=== PATIENT | male | born 1965 | race Caucasian/White ===

== ENCOUNTER 2020-01-29 07:02 | Outpatient (CLI) | payer OTHER ==
[2020-01-29 20:25] LABS: SARS-CoV-2 MS2 Positive; SARS-CoV-2 N Gene Negative; SARS-CoV-2 S Gene Negative; SARS-CoV-2 by NAA Not Detected (NotDetected); SARS-CoV-2 orf1ab Negative
== END 2020-01-29 07:03 | disposition home or self-care (01) ==
LOC: LABBT 07:02
PROVIDERS: ATTEND Neurological Surgery
DX: Z01.818 Encounter for other preprocedural examination (principal); Z20.828 Contact with and (suspected) exposure to other viral communicable diseases; M48.061 Spinal stenosis, lumbar region without neurogenic claudication
CPT/HCPCS: 87635; 93005; 93010; U0003

== ENCOUNTER 2020-02-03 07:25 | Day surgery (SDC) | payer OTHER ==
[2020-01-31 09:22] VITALS: BMI 45.9
[2020-02-03] MEDS ORDERED: Clindamycin/D5W 900 mg/50 ml Premix Bag ONE ×2 (08:27→13:51)
[2020-02-03] MEDS ORDERED: Levofloxacin 500 mg/D5W 100 ml Premix Bag ONE (08:27)
[2020-02-03] MEDS ORDERED: Bupivacaine PF 0.5% 30 ML VIAL ONE (08:37)
[2020-02-03] MEDS ORDERED: EPINEPHrine 1 MG/ML AMP ONE (08:37)
[2020-02-03] MEDS ORDERED: Fentanyl 100 MCG/2 ML VIAL ONE ×3 (08:42→11:17)
[2020-02-03] MEDS ORDERED: Midazolam HCl 2 mg/2 ml Vial ONE (08:42)
[2020-02-03] MEDS ORDERED: Ondansetron PF 4 MG/2 ML Vial ONE (10:13)
[2020-02-03] MEDS ORDERED: Dexamethasone 20 MG/5 ML VIAL ONE (10:13)
[2020-02-03] MEDS ORDERED: Lidocaine 1% PF 5 ML VIAL ONE (10:13)
[2020-02-03] MEDS ORDERED: Ketorolac Tromethamine 30 MG/ML VIAL ONE (10:13)
[2020-02-03] MEDS ORDERED: Rocuronium Bromide 10 MG/ML (10ML VIAL) ONE (10:13)
[2020-02-03] MEDS ORDERED: PHENYLEPHRINE-NS 100 MCG/ML 10 ML SYRINGE ONE (10:13)
[2020-02-03] MEDS ORDERED: PROPOFOL 200 MG/20 ML VIAL ONE (10:13)
[2020-02-03] MEDS ORDERED: Glycopyrrolate 0.2 MG/ML 5 ML SYRINGE ONE (10:13)
--- NOTE | 2020-02-03 10:26 | OP ---
DATE OF PROCEDURE: 02/03/2020 CUSTOM VAN CONVERTER: Dimitry Meza PA-C INDICATION FOR PROCEDURE: Pain. 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 PROCEDURE PERFORMED: L4-S1 decompression. ANESTHESIA: General. DESCRIPTION OF PROCEDURE: The patient was brought into the operating room and placed under general anesthesia. He was flipped from the supine to prone position on the operating room table. A linear incision was planned spanning L4 through S1. After prepping and draping and after an appropriate preoperative pause, the incision was created. The soft tissues were swept away from midline. A self-retaining retractor was placed. After confirming the appropriate level with C-arm fluoroscopy, an Adson rongeur was used to remove the spinous process of L5 and the inferior aspect of L4. High-speed cutting drill bit as well as 2, 3, and 4 mm Kerrisons were then used to perform a laminectomy spanning L4 through S1. After completing the laminectomy, a copious amount of epidural lipomatosis was present was evacuated until the thecal sac was decompressed essentially as well as the lateral recesses. After completing the decompression, the wound was irrigated. Hemostasis was maintained throughout. The wound was then closed in anatomic layers, and a pressure dressing was applied. There were no known procedural complications. Job ID: [id number]
[2020-02-03] MEDS ORDERED: Tamsulosin HCl 0.4 MG CAP ONE (11:07)
[2020-02-03] MEDS ORDERED: Morphine 4 MG/ML VIAL ONE (11:41)
[2020-02-03] MEDS ORDERED: Promethazine HCl 25 MG/ML VIAL ONE (12:25)
== END 2020-02-03 14:50 | disposition home or self-care (01) ==
LOC: SDC 07:25
PROVIDERS: ATTEND Neurological Surgery
PROC: 01NB0ZZ Release Lumbar Nerve, Open Approach (ICD-10-PCS; principal; 2020-02-03)
DX: D17.79 Benign lipomatous neoplasm of other sites (principal); M48.061 Spinal stenosis, lumbar region without neurogenic claudication; G47.30 Sleep apnea, unspecified; E78.5 Hyperlipidemia, unspecified; Z79.899 Other long term (current) drug therapy; Z88.0 Allergy status to penicillin
CPT/HCPCS: 76000; J0171; J1100; J1885; J1956; J2250; J2270; J2405; J2550; J2704; J3010; J3490; S0020

== ENCOUNTER 2020-07-08 13:36 | Outpatient (CLI) | payer OTHER | END 2020-07-08 13:37 | disposition home or self-care (01) | LOC: TBSIIMAG 13:36 | PROVIDERS: ATTEND Neurological Surgery | DX: M48.062 Spinal stenosis, lumbar region with neurogenic claudication (principal); M47.816 Spondylosis without myelopathy or radiculopathy, lumbar region; Z98.890 Other specified postprocedural states | CPT/HCPCS: 72158 ==

== ENCOUNTER 2020-12-04 13:16 | Outpatient (CLI) | payer OTHER | END 2020-12-04 13:17 | disposition home or self-care (01) | LOC: BICCT 13:16 | PROVIDERS: ATTEND Neurological Surgery | DX: M54.5 Low back pain (principal); M79.606 Pain in leg, unspecified; M48.061 Spinal stenosis, lumbar region without neurogenic claudication; M43.16 Spondylolisthesis, lumbar region; Z98.890 Other specified postprocedural states | CPT/HCPCS: 72110; 72131 ==

== ENCOUNTER 2021-01-12 12:44 | Outpatient (CLI) | payer OTHER ==
[2021-01-13 00:49] LABS: SARS-CoV-2 PCR by NAA Not Detected (NotDetected)
== END 2021-01-12 12:45 | disposition home or self-care (01) ==
LOC: LABBT 12:44
PROVIDERS: ATTEND Neurological Surgery
DX: Z01.812 Encounter for preprocedural laboratory examination (principal); M48.061 Spinal stenosis, lumbar region without neurogenic claudication; Z20.822 Contact with and (suspected) exposure to COVID-19
CPT/HCPCS: U0003; U0005

== ENCOUNTER 2021-01-15 05:37 | Day surgery (SDC) | payer OTHER ==
[2021-01-14 12:13] VITALS: BMI 46.6
[2021-01-15] MEDS ORDERED: ceFAZolin 2 GM/DEX 5% 100 ML BAG ONE ×2 (05:59→11:59)
[2021-01-15] MEDS ORDERED: Fentanyl 100 MCG/2 ML VIAL ONE ×4 (06:11→12:43)
[2021-01-15] MEDS ORDERED: EPINEPHrine 1 MG/ML AMP ONE (06:23)
[2021-01-15] MEDS ORDERED: Bupivacaine PF 0.5% 30 ML VIAL ONE (06:23)
[2021-01-15] MEDS ORDERED: Thrombin 5000 UNITS/5 ML VIAL ONE (06:23)
[2021-01-15] MEDS ORDERED: Scopolamine 1.5 mg/72 hour Patch ONE (06:46)
[2021-01-15] MEDS ORDERED: Midazolam HCl 2 mg/2 ml Vial ONE (06:46)
[2021-01-15] MEDS ORDERED: Acetaminophen 500 MG TAB ONE (06:46)
[2021-01-15] MEDS ORDERED: HYDROmorphone 2 MG/ML VIAL ONE (06:59)
[2021-01-15] MEDS ORDERED: Ondansetron PF 4 MG/2 ML Vial ONE (07:05)
[2021-01-15] MEDS ORDERED: Lidocaine 1% PF 5 ML VIAL ONE (07:05)
[2021-01-15] MEDS ORDERED: PROPOFOL 200 MG/20 ML VIAL ONE (07:05)
[2021-01-15] MEDS ORDERED: ePHEDrine 50 MG/ML VIAL ONE (07:05)
[2021-01-15] MEDS ORDERED: Dexamethasone 20 MG/5 ML VIAL ONE (07:05)
[2021-01-15] MEDS ORDERED: Glycopyrrolate 0.2 MG/ML 5 ML SYRINGE ONE ×2 (07:05)
[2021-01-15] MEDS ORDERED: Ketorolac Tromethamine 30 MG/ML VIAL ONE (07:05)
[2021-01-15] MEDS ORDERED: Rocuronium Bromide 10 MG/ML (10ML VIAL) ONE (07:05)
[2021-01-15] MEDS ORDERED: Morphine 4 MG/ML VIAL ONE (10:43)
[2021-01-15] MEDS ORDERED: Tamsulosin HCl 0.4 MG CAP ONE (10:43)
[2021-01-15] MEDS ORDERED: HYDROcodone/Acetaminophen 5/325 mg Tablet ONE (11:42)
== END 2021-01-15 13:54 | disposition home or self-care (01) ==
LOC: SDC 05:37
PROVIDERS: ATTEND Neurological Surgery
PROC: 0ST20ZZ Resection of Lumbar Vertebral Disc, Open Approach (ICD-10-PCS; principal; 2021-01-15)
PROC: 0SG00AJ Fusion of Lumbar Vertebral Joint with Interbody Fusion Device, Posterior Approach, Anterior Column, Open Approach (ICD-10-PCS; principal; 2021-01-15)
DX: M51.16 Intervertebral disc disorders with radiculopathy, lumbar region (principal); M43.16 Spondylolisthesis, lumbar region; I10 Essential (primary) hypertension; E78.5 Hyperlipidemia, unspecified; Z79.899 Other long term (current) drug therapy; Z88.0 Allergy status to penicillin
CPT/HCPCS: 76000; 93005; 93010; C1713; C1768; J0171; J1100; J1170; J1885; J2250; J2270; J2405; J2704; J3010; J3490; S0020